=== PATIENT | female | born 1965 | race Two or more races ===

== ENCOUNTER 2016-10-29 13:03 | Observation (INO) | payer OTHER ==
--- NOTE | 2016-10-29 14:27 | PDOC ---
History of Present Illness - General History Source: Patient Exam Limitations: No Limitations - History of Present Illness Initial Comments: 10/29/16 15:39 The patient is a 51 year old female with significant past medical history of hypercholesterolemia who presents to the emergency department with chest pain since this afternoon. The patient states she was at work at the [employer] when she had a sudden onset of chest pain, weakness, and shortness of breath. Her chest pain is localized to the center of her chest and does not radiate. She also reports some numbness/tingling in her hands bilaterally. She also reports associated nausea but denies any vomiting. She denies any associated diaphoresis. The patient has never had pain like this before. She has never had a stress test. She denies any recent illness, fevers, or chills. <Seema Menchaca - Last Filed: 10/29/16 16:54> <Teresa Lentz - Last Filed: 10/31/16 07:48> - General Chief Complaint: Chest Pain Stated Complaint: NUMBNESS IN ARMS Time Seen by Provider: 10/29/16 14:18 Past History <Seema Menchaca - Last Filed: 10/29/16 16:54> - Past Medical History Diabetes: Yes (PREDIABETIC) Hypercholesterolemia: Yes Thyroid Disease: Yes - Surgical History Abdominal Surgery: Yes (ECTOPIC ) Cholecystectomy: Yes - Psycho/Social/Smoking Cessation Hx Suicidal Ideation: No Smoking History: Never smoked Hx Alcohol Use: No Drug/Substance Use Hx: No <Teresa Lentz - Last Filed: 10/31/16 07:48> - Past Medical History Allergies/Adverse Reactions: Allergies Allergy/AdvReac Type Severity Reaction Status Date / Time Penicillins Allergy Verified 10/29/16 13:17 Sulfa (Sulfonamide Allergy Verified 10/29/16 13:17 Antibiotics) Home Medications: Ambulatory Orders Levothyroxine [Synthroid -] 25 mcg PO DAILY 10/29/16 Simvastatin 20 mg PO HS 10/29/16 Review of Systems - Review of Systems Able to Perform ROS?: Yes Comments:: 10/29/16 15:39 GENERAL/CONSTITUTIONAL: +Weakness. No fever or chills. HEAD, EYES, EARS, NOSE AND THROAT: No change in vision. No ear pain or discharge. No sore throat. CARDIOVASCULAR: +Chest pain, +SOB. RESPIRATORY: No cough, wheezing, or hemoptysis. GASTROINTESTINAL: No nausea, vomiting, diarrhea or constipation. GENITOURINARY: No dysuria, frequency, or change in urination. MUSCULOSKELETAL: No joint or muscle swelling or pain. No neck or back pain. SKIN: No rash NEUROLOGIC: No headache, vertigo, loss of consciousness, or change in strength/ sensation. ENDOCRINE: No increased thirst. No abnormal weight change. HEMATOLOGIC/LYMPHATIC: No anemia, easy bleeding, or history of blood clots. ALLERGIC/IMMUNOLOGIC: No hives or skin allergy. <Seema Menchaca - Last Filed: 10/29/16 16:54> *Physical Exam - Vital Signs Last Vital Signs Temp Pulse Resp BP Pulse Ox 97.6 F 70 16 138/86 100 10/29/16 13:13 10/29/16 13:13 10/29/16 13:13 10/29/16 13:13 10/29/16 13:13 - Physical Exam Comments: 10/29/16 15:39 GENERAL: Awake, alert, and fully oriented, in no acute distress HEAD: No signs of trauma EYES: PERRLA, EOMI, sclera anicteric, conjunctiva clear ENT: Auricles normal inspection, hearing grossly normal, nares patent, oropharynx clear without exudates. Moist mucosa NECK: Normal ROM, supple, no lymphadenopathy, JVD, or masses LUNGS: Breath sounds equal, clear to auscultation bilaterally. No wheezes, and no crackles HEART: Regular rate and rhythm, normal S1 and S2, no murmurs, rubs or gallops ABDOMEN: Soft, nontender, normoactive bowel sounds. No guarding, no rebound. No masses EXTREMITIES: Normal range of motion, no edema. No clubbing or cyanosis. No cords, erythema, or tenderness NEUROLOGICAL: Cranial nerves II through XII grossly intact. Normal speech, normal gait SKIN: Warm, Dry, normal turgor, no rashes or lesions noted. <Seema Menchaca - Last Filed: 10/29/16 16:54> - Vital Signs Last Vital Signs Temp Pulse Resp BP Pulse Ox 97.6 F 70 16 138/86 100 10/29/16 13:13 10/29/16 13:13 10/29/16 13:13 10/29/16 13:13 10/29/16 13:13 <Teresa Lentz - Last Filed: 10/31/16 07:48> Heart Score/ECG Review - History History: Moderately suspicious - Electrocardiogram EKG: Normal - Age Age: 45-65 - Risk Factors Risk Factors Heart Score: Yes Hx Hypercholesterolemia Based on the list above the patient has:: 1-2 risk factors - Troponin Troponin: </= normal limit - Score Heart Score - Total: 3 - ECG Impressions Comment:: EKG read 13:36- NSR 68 bpm, marked sinus arrhythmia. No ST/T changes. <Teresa Lentz - Last Filed: 10/31/16 07:48> ED Treatment Course - LABORATORY CBC & Chemistry Diagram: 10/29/16 14:29 10/29/16 14:29 - ADDITIONAL ORDERS Additional order review: Laboratory Results 10/29/16 14:31 Urine HCG, Qual Negative 10/29/16 14:29 RBC 4.45 MCV 84.2 MCHC 32.8 RDW 14.0 MPV 7.6 Neutrophils % 71.8 Lymphocytes % 20.9 Monocytes % 5.5 Eosinophils % 1.6 Basophils % 0.2 <Seema Menchaca - Last Filed: 10/29/16 16:54> - LABORATORY CBC & Chemistry Diagram: 10/29/16 14:29 10/29/16 14:29 <Teresa Lentz - Last Filed: 10/31/16 07:48> Medical Decision Making - Medical Decision Making 10/29/16 15:44 D/w Dr. Chou- will admit for chest pain. <Teresa Lentz - Last Filed: 10/31/16 07:48> *DC/Admit/Observation/Transfer - Attestations Scribe Attestion: 10/29/16 14:59 Documentation prepared by Seema Menchaca, acting as medical accounts receivable specialist for Teresa Lentz MD. <Seema Menchaca - Last Filed: 10/29/16 16:54> - Discharge Dispostion Admit: Yes <Teresa Lentz - Last Filed: 10/31/16 07:48> Diagnosis at time of Disposition: Chest pain Qualifiers: Chest pain type: precordial pain Qualified Code(s): R07.2 - Precordial pain - Discharge Dispostion Disposition: HOME Condition at time of disposition: Stable - Referrals
[2016-10-29 14:42] LABS: BASOPHIL 0.2 % (0-2.0); EOSINOPHIL 1.6 % (0-4.5); MCH 27.6 pg (25.7-33.7); MCHC 32.8 g/dl (32.0-36.0); MEAN CELL VOLUME 84.2 fl (80-96); MEAN PLT VOLUME 7.6 fl (7.5-11.1); NEUTROPHILS 71.8 % (42.8-82.8); PLATELET COUNT 294 K/MM3 (134-434); WHITE BLOOD COUNT 9.8 K/mm3 (4.0-10.0)
[2016-10-29 14:59] LABS: ALBUMIN 3.6 g/dl (3.4-5.0); ANION GAP 5 (8-16); BILIRUBIN,TOTAL 0.3 mg/dL (0.2-1.0); CALCIUM 8.6 mg/dL (8.5-10.1); CO2 31 mmol/L (21-32); CREATININE 0.7 mg/dL (0.55-1.02); GLUCOSE,RANDOM 101 mg/dL (74-106); SGOT/AST 17 U/L (15-37); SGPT/ALT 27 U/L (12-78); TOT PROT 7.2 g/dl (6.4-8.2)
[2016-10-29 15:01] LABS: ALK PHOS 62 U/L (45-117); TROPONIN I < 0.02 ng/ml (0.00-0.05)
--- NOTE | 2016-10-29 16:39 | CON.CARD ---
Consult Consult Specialty:: Cardiology Referred by:: Hair Chou Reason for Consultation:: Chest pain - History of Present Illness Chief Complaint: Chest pain History of Present Illness: The patient is a 51 year old [place] female with significant past medical history of hypercholesterolemia who presented to the emergency department with non-radiating retrosternal, chest tightness associated with shortness of breath after running to catch a bus since resolved. She also reports some numbness/ tingling in her hands bilaterally. She denies near or true syncope, palpitations , orthopnea, PND or LE edema, denies exertional sxs usually. - History Source History Provided By: Patient, Transfer Record - Past Medical History Cardio/Vascular: Yes: Hyperlipdemia - Alcohol/Substance Use Hx Alcohol Use: No - Smoking History Smoking history: Never smoked Home Medications - Allergies Allergies/Adverse Reactions: Allergies Allergy/AdvReac Type Severity Reaction Status Date / Time Penicillins Allergy Verified 10/29/16 13:17 Sulfa (Sulfonamide Allergy Verified 10/29/16 13:17 Antibiotics) - Home Medications Home Medications: Ambulatory Orders Levothyroxine [Synthroid -] 25 mcg PO DAILY 10/29/16 Simvastatin 20 mg PO HS 10/29/16 Review of Systems - Review of Systems Cardiovascular: reports: Chest Pain, Shortness of Breath - Risk Factors Known Risk Factors: Yes: Hypercholesterolemia, Race Vital Signs: Vital Signs Temperature 97.6 F 10/29/16 13:13 Pulse Rate 70 10/29/16 13:13 Respiratory Rate 16 10/29/16 13:13 Blood Pressure 138/86 10/29/16 13:13 O2 Sat by Pulse Oximetry (%) 100 10/29/16 13:13 Constitutional: Yes: No Distress, Calm Neck: Yes: Supple Respiratory: Yes: Regular, CTA Bilaterally Gastrointestinal: Yes: Normal Bowel Sounds, Soft Cardiovascular: Yes: Regular Rate and Rhythm JVD: No Carotid Bruit: No Heart Sounds: Yes: S1, S2 Edema: No - Other Data NSR @ 68 Imaging - Results Chest X-ray: Report Reviewed (NAD) Problem List - Problems (1) Chest pain Code(s): R07.9 - CHEST PAIN, UNSPECIFIED Qualifiers: Chest pain type: precordial pain Qualified Code(s): R07.2 - Precordial pain (2) Hyperlipidemia Code(s): E78.5 - HYPERLIPIDEMIA, UNSPECIFIED Qualifiers: Hyperlipidemia type: pure hypercholesterolemia Qualified Code(s): E78.00 - Pure hypercholesterolemia, unspecified; E78.0 - Pure hypercholesterolemia Assessment/Plan 1. Chest pain syndrome r/o ischemia 2. Hyperlipidemia P:1. Ruling out for MS, check TSH, lipid panel 2. Exercise stress test r/o ischemia 3. Echo to assess LV and valve fxn 4. Thank you for consultative opportunity
[2016-10-29] MEDS ORDERED: ATORVASTATIN CA 10 MG TABLET (FP) PO SCH (22:00)
[2016-10-30] MEDS ORDERED: LEVOTHYROXINE NA 25 MCG TABLET (FP) PO SCH (07:00)
[2016-10-30 08:47] LABS: CHOLESTEROL 179 mg/dL (50-200); LDL CHOLESTEROL (ONLY SJRH) 119 mg/dL (5-100); THYROID STIMULATING HORMONE 4.03 uIU/ml (0.358-3.74); TROPONIN I < 0.02 ng/ml (0.00-0.05)
--- NOTE | 2016-10-30 09:29 | PN ---
Progress Note, Physician Chief Complaint: Pt sitting in bed No complaints,no chest pain,no sob Pt is NPO for stress test Cardiac enzyme nega - Current Medication List Current Medications: Active Medications Atorvastatin Calcium (Lipitor -) 10 mg PO HS [facility] Last Admin: 10/29/16 22:13 Dose: 10 mg Levothyroxine Sodium (Synthroid -) 25 mcg PO DAILY@0700 [facility] Last Admin: 10/30/16 06:25 Dose: 25 mcg - Objective Vital Signs: Vital Signs Temperature 97.6 F 10/30/16 06:00 Pulse Rate 63 10/30/16 06:00 Respiratory Rate 20 10/30/16 06:00 Blood Pressure 128/70 10/30/16 06:00 O2 Sat by Pulse Oximetry (%) 96 10/29/16 21:00 Constitutional: Yes: No Distress Eyes: Yes: Conjunctiva Clear HENT: Yes: Atraumatic Neck: Yes: Supple, Trachea Midline Cardiovascular: Yes: Regular Rate and Rhythm Respiratory: Yes: Regular, CTA Bilaterally Gastrointestinal: Yes: Normal Bowel Sounds, Soft Musculoskeletal: Yes: WNL Extremities: Yes: WNL Edema: No Peripheral Pulses WNL: Yes Neurological: Yes: WNL, Alert, Oriented ...Motor Strength: WNL Psychiatric: Yes: WNL, Alert, Oriented Labs: Laboratory Results - last 24 hr 10/29/16 10/29/16 10/29/16 14:29 14:29 14:31 WBC 9.8 RBC 4.45 Hgb 12.3 Hct 37.5 MCV 84.2 MCHC 32.8 RDW 14.0 Plt Count 294 MPV 7.6 Neutrophils % 71.8 Lymphocytes % 20.9 Monocytes % 5.5 Eosinophils % 1.6 Basophils % 0.2 Sodium 139 Potassium 4.3 Chloride 103 Carbon Dioxide 31 Anion Gap 5 L BUN 12 Creatinine 0.7 Creat Clearance w eGFR > 60 Random Glucose 101 Calcium 8.6 Total Bilirubin 0.3 AST 17 ALT 27 Alkaline Phosphatase 62 Creatine Kinase 139 Troponin I < 0.02 Total Protein 7.2 Albumin 3.6 Triglycerides Cholesterol Total LDL Cholesterol HDL Cholesterol TSH Urine HCG, Qual Negative 10/30/16 05:35 WBC RBC Hgb Hct MCV MCHC RDW Plt Count MPV Neutrophils % Lymphocytes % Monocytes % Eosinophils % Basophils % Sodium Potassium Chloride Carbon Dioxide Anion Gap BUN Creatinine Creat Clearance w eGFR Random Glucose Calcium Total Bilirubin AST ALT Alkaline Phosphatase Creatine Kinase 116 Troponin I < 0.02 Total Protein Albumin Triglycerides 144 Cholesterol 179 Total LDL Cholesterol 119 H HDL Cholesterol 44 TSH 4.03 H Urine HCG, Qual - ....Imaging Chest X-ray: Report Reviewed EKG: Report Reviewed Assessment/Plan Chest pain hypercholestrolemia PLAN Continue MEDS For stress test today
--- NOTE | 2016-10-30 10:05 | PN ---
Progress Note, Physician History of Present Illness: No further chest tightness or dyspnea. Ruled out for GA. - Current Medication List Current Medications: Active Medications Atorvastatin Calcium (Lipitor -) 10 mg PO HS [facility] Last Admin: 10/29/16 22:13 Dose: 10 mg Levothyroxine Sodium (Synthroid -) 25 mcg PO DAILY@0700 [facility] Last Admin: 10/30/16 06:25 Dose: 25 mcg - Objective Vital Signs: Vital Signs Temperature 97.6 F 10/30/16 06:00 Pulse Rate 63 10/30/16 06:00 Respiratory Rate 20 10/30/16 06:00 Blood Pressure 128/70 10/30/16 06:00 O2 Sat by Pulse Oximetry (%) 96 10/29/16 21:00 Constitutional: Yes: No Distress, Calm Neck: Yes: Supple Cardiovascular: Yes: Regular Rate and Rhythm Respiratory: Yes: Regular, CTA Bilaterally Gastrointestinal: Yes: Normal Bowel Sounds, Soft Edema: No - ....Imaging EKG: Report Reviewed (Tele: SR) Problem List - Problems (1) Chest pain Code(s): R07.9 - CHEST PAIN, UNSPECIFIED Qualifiers: Chest pain type: precordial pain Qualified Code(s): R07.2 - Precordial pain (2) Hyperlipidemia Code(s): E78.5 - HYPERLIPIDEMIA, UNSPECIFIED Qualifiers: Hyperlipidemia type: pure hypercholesterolemia Qualified Code(s): E78.00 - Pure hypercholesterolemia, unspecified; E78.0 - Pure hypercholesterolemia Assessment/Plan 1. Chest pain syndrome r/o ischemia 2. Hyperlipidemia P:1. Ruled out for GA 2. Exercise stress test r/o ischemia 3. Echo to assess LV and valve fxn 4. Further recommendations pending above study results
--- NOTE | 2016-10-30 10:22 | HP ---
DATE OF ADMISSION: DATE OF DICTATION: 10/30/2016 HISTORY OF PRESENT ILLNESS: The patient is a 51-year-old female with past medical history of hyperlipidemia, hypothyroidism, diabetes, who presented to the emergency department with complaints of non-radiating retrosternal chest tightness associated with shortness of breath after running to catch a bus, and it has resolved spontaneously. She also reports some tingling and numbness in her hands bilaterally. She denies any pain, palpitations. orthopnea, or lower extremity edema. She denies any other exertional dyspnea on a regular basis. PAST MEDICAL HISTORY: History of hyperlipidemia and hypothyroidism, prediabetic. SURGICAL HISTORY: Nothing significant. PERSONAL HISTORY: No history of alcohol, drug, or smoking. ALLERGIES: To PENICILLIN and SULFA. HOME MEDICATIONS: Levothyroxine 25 mcg p.o. daily, simvastatin 20 mg p.o. daily. REVIEW OF SYSTEMS: General: No apparent distress. Cardiovascular: History of hypocholesterolemia. Respiratory: Tightness in the chest. Gastrointestinal: Nothing significant. Neurological: Tingling sensation both hands. Musculoskeletal: Nothing significant. PHYSICAL EXAMINATION: Vital signs: On examination in the emergency room, temperature was 97.6, pulse rate 70, respirations 16, blood pressure 136/86, and saturation 100%. Constitution: In no apparent distress. Patient is calm. Head and neck: Normal. Neck supple. Respiratory: Regular. Clear to auscultation bilaterally. No carotid bruit. Cardiovascular: The 1st and 2nd sound normal. Abdomen: Soft, no tenderness, no distension. Bowel sounds present. Extremities: No edema. Central nervous system: Alert and oriented x3. No apparent motor or sensory deficit. Reflex normal. DIAGNOSTIC DATA: EKG shows sinus rhythm with sinus arrhythmia, nonspecific ST abnormality. Chest x-ray shows nothing significant. LABORATORIES: CBC normal. CMP normal. Cardiac enzymes x1 negative. Urine test negative. AST, ALT normal. CK 139. IMPRESSION: Patient admitted to telemetry with admitting diagnosis of chest pain, unspecified, and hyperlipidemia. PLAN: Continue the medication. Rule out SC. Check thyroid and lipid panel. Cardiology consult noted. Recommend exercise stress test and echocardiogram. Patient stable on the floor. KVNG ESPOSITO M.D. [id number]
--- NOTE | 2016-10-30 13:47 | TRE ---
Protocol Name : CLEO Max Work Load (METS*10) : 80 Time In Exercise Phase : 00:06:39 Max. Systolic BP : 108 mmHg Max Diastolic BP : 74 mmHg Max Heart Rate : 144 BPM Max Predicted Heart Rate : 167 BPM Attending Physician : Reason For Termination : Target Heart Rate Achieved Reason for Test : CHEST PAIN Stress Protocol : CLEO Rest HR : 68 BPM PeakEx METs : 8.0 METS Recovery ECG Response (OLD) : Diagnosis : Baseline ecg shows sr. Patient exercised for 6:39 minutes achieving 86% mphr. Normal BP and HR response to exercise. No chest pain or anginal symptoms. No arrhythmias. ST depressions present in AVF and V6 but do not meet criteria for ischemia. Normal exercise stress ecg. Confirmed by KEYANA MONTAGUE MD ([id number]) on 10/30/2016 1:47:34 PM
--- NOTE | 2016-10-30 13:52 | EKG ---
Test Reason : Blood Pressure : / mmHG Vent. Rate : 068 BPM Atrial Rate : 068 BPM P-R Int : 146 ms QRS Dur : 082 ms QT Int : 384 ms P-R-T Axes : 058 014 062 degrees QTc Int : 408 ms SINUS RHYTHM WITH MARKED SINUS ARRHYTHMIA NONSPECIFIC ST ABNORMALITY ABNORMAL ECG NO PREVIOUS ECGS AVAILABLE Confirmed by KEYANA MONTAGUE MD ([id number]) on 10/30/2016 1:52:44 PM Referred By: Confirmed By:KEYANA MONTAGUE MD
[2016-10-30 14:52] VITALS: BP 110/68; PULSE 77; TEMP 98.4
== END 2016-10-30 18:12 | disposition home or self-care (01) ==
LOC: JER 13:03 → JERBED 15:45 → J4W 17:30
PROVIDERS: ADMIT Family Medicine; ATTEND Family Medicine
DX: R07.89 Other chest pain (principal); E78.00 Pure hypercholesterolemia, unspecified; R73.03 Prediabetes
CPT/HCPCS: 36415; 71010-TC; 80053; 80061; 82550; 83721; 84443; 84484; 84703; 85025; 93005; 93010; 93017; 93018; 93306-TC; 99285-25; G0378

== ENCOUNTER 2017-02-23 18:54 | Emergency (ER) | payer OTHER ==
[2017-02-23] MEDS ORDERED: SODIUM CHLORIDE 0.9% 1000 ML INFUS.BAG IV PRN (19:26)
[2017-02-23 20:07] VITALS: BP 127/72; PULSE 78; TEMP 99.1; BMI 53.0
[2017-02-23 20:13] LABS: BASOPHIL 0.2 % (0-2.0); EOSINOPHIL 2.8 % (0-4.5); MCH 26.8 pg (25.7-33.7); MCHC 32.2 g/dl (32.0-36.0); MEAN CELL VOLUME 83.4 fl (80-96); MEAN PLT VOLUME 7.9 fl (7.5-11.1); NEUTROPHILS 82.4 % (42.8-82.8); PLATELET COUNT 259 K/MM3 (134-434); RDW 13.1 % (11.6-15.6)
--- NOTE | 2017-02-23 20:18 | PDOC ---
History of Present Illness - General Chief Complaint: SIRS, Suspected/Possible Stated Complaint: nausea/fever/ Time Seen by Provider: 02/23/17 19:21 - History of Present Illness Initial Comments: 02/23/17 20:16 CHIEF COMPLAINT: cough, fever, "feeling sick" HISTORY OF PRESENT ILLNESS: 51 yo F with hx of hypothyroidism, prediabetes, and HLD presents to ED with c/o of "feeling sick since last night." Patient reports that she felt like she had a fever last night, and this morning she left work early because she was feeling "too bad." She reports body aches, 2 episodes of vomiting today, "too much" coughing, and urinary frequency. She denies any dysuria or hematuria. No recent travel or sick contacts. PAST MEDICAL HISTORY: Denies past medical history FAMILY HISTORY: Denies SOCIAL HISTORY: Denies tobacco, alcohol, illicit drug use. SURGICAL HISTORY: Denies ALLERGIES: PCN, sulfa REVIEW OF SYSTEMS General/Constitutional: Subjective fever, chills. Denies weakness, weight change. HEENT: Denies change in vision. Denies ear pain or discharge. Denies sore throat. Cardiovascular: Denies chest pain or shortness of breath. Respiratory: Cough. Denies wheezing, or hemoptysis. Gastrointestinal: 2 episodes of vomiting today. Denies diarrhea or constipation. Denies rectal bleeding. Genitourinary: Urinary frequency. Denies dysuria, hematuria. Musculoskeletal: Body aches. Denies joint or muscle swelling or pain. Skin: Denies rash or easy bruising. Neurologic: Denies headache, vertigo, loss of consciousness, or loss of sensation. PHYSICAL EXAM General Appearance: Well-appearing, appropriately dressed. No apparent distress , no intoxication. HEENT: EOMI, PERRLA, normal ENT inspection, normal voice, TMs normal, pharynx normal. No conjunctival pallor. No photophobia, scleral icterus. Neck: Supple. Trachea midline. No tenderness, rigidity, carotid bruit, stridor , lymphadenopathy, or thyromegaly. Respiratory/Chest: Lungs CTAB. No shortness of breath, chest tenderness, respiratory distress, accessory muscle use. No crackles, rales, rhonchi, stridor , wheezing, dullness Cardiovascular: RRR. S1, S2. No JVD, murmur, bradycardia, tachycardia. Vascular Pulses: Dorsalis-Pedis (R): 2+, Dorsalis-Pedis (L): 2+ Gastrointestinal/Abdominal: Normal bowel sounds. Abdomen soft, non-distended. No tenderness or rebound tenderness. No organomegaly, pulsatile mass, guarding , hernia, hepatomegaly, splenomegaly. Lymphatic: No adenopathy, tenderness. Musculoskeletal/Extremities: Normal inspection. FROM of all extremities, normal capillary refill. Pelvis Stable. No CVA tenderness. No tenderness to extremities, pedal edema, swelling, erythema or deformity. Integumentary: Appropriate color, dry, warm. No cyanosis, erythema, jaundice or rash Neurologic: elderly caregiver II-XII intact. Fully oriented, alert. Appropriate mood/affect. Motor strength 5/5. No appreciable EOM palsy, facial droop or sensory deficit. Past History - Past Medical History Allergies/Adverse Reactions: Allergies Allergy/AdvReac Type Severity Reaction Status Date / Time Penicillins Allergy Verified 10/29/16 13:17 Sulfa (Sulfonamide Allergy Verified 10/29/16 13:17 Antibiotics) Home Medications: Ambulatory Orders Levothyroxine [Synthroid -] 25 mcg PO DAILY 10/29/16 Simvastatin 20 mg PO HS 10/29/16 Dextromethorphan HBr [Robitussin] 15 mg PO Q6H PRN #28 capsule 02/23/17 Guaifenesin/Codeine Phosphate [Cheratussin AC Syrup] 15 ml PO HS PRN #118 ml MDD 30 02/23/17 Ibuprofen 600 mg PO TID #21 tablet 02/23/17 Diabetes: Yes (PREDIABETIC) Hypercholesterolemia: Yes Thyroid Disease: Yes - Surgical History Abdominal Surgery: Yes (ECTOPIC ) Cholecystectomy: Yes - Psycho/Social/Smoking Cessation Hx Suicidal Ideation: No Smoking History: Never smoked Have you smoked in the past 12 months: No Hx Alcohol Use: No Drug/Substance Use Hx: No Substance Use Type: None Hx Substance Use Treatment: No *Physical Exam - Vital Signs Last Vital Signs Temp Pulse Resp BP Pulse Ox 99.1 F 78 17 127/72 97 02/23/17 20:04 02/23/17 20:04 02/23/17 20:04 02/23/17 20:04 02/23/17 20:04 ED Treatment Course - LABORATORY CBC & Chemistry Diagram: 02/23/17 19:40 02/23/17 19:40 - ADDITIONAL ORDERS Additional order review: 02/23/17 19:40 RBC 4.50 MCV 83.4 MCHC 32.2 RDW 13.1 MPV 7.9 Neutrophils % 82.4 Lymphocytes % 10.3 D Monocytes % 4.3 Eosinophils % 2.8 Basophils % 0.2 - RADIOLOGY Radiology Studies Ordered: Category Date Time Status CHEST X-RAY PORTABLE* [RAD] Stat Radiology 02/23/17 19:26 Taken Medical Decision Making - Medical Decision Making 02/23/17 20:27 51 yo F with hx of hypothyroidism, prediabetes, and HLD presents to ED with c/ o of "feeling sick since last night." -CBC, CMP, lactic acid, PT/INR, blood cultures -UA, UCx -EKG, CXR 02/23/17 22:10 LAbs unremarkable. CXR clear Clinical presentation consistent with viral bronchitis. Will discharge to home with symptomatic meds. Advised patient to take medication as prescribed and follow up with PCP within one week. Advised patient of signs and symptoms for return to ED. Patient verbalized understanding and agrees to plan. *DC/Admit/Observation/Transfer Diagnosis at time of Disposition: Acute bronchitis Qualifiers: Bronchitis organism: unspecified organism Qualified Code(s): J20.9 - Acute bronchitis, unspecified - Discharge Dispostion Disposition: HOME Condition at time of disposition: Stable - Prescriptions Prescriptions: Guaifenesin/Codeine Phosphate [Cheratussin AC Syrup] 15 ml PO HS PRN #118 ml MDD 30 PRN Reason: Cough Ibuprofen 600 mg PO TID #21 tablet Dextromethorphan HBr [Robitussin] 15 mg PO Q6H PRN #28 capsule PRN Reason: Cough - Referrals Referrals: Hair Chou MD [Primary Care Provider] - - Patient Instructions Printed Discharge Instructions: DI for Acute Bronchitis Additional Instructions: Please take medications as prescribed. Do not drive or operate machinery while taking Cheratussin AC. Drinks plenty of fluids (non-sugary) and stay home and rest for the next 2-3 days. Please follow up with your primary care doctor within the next week for continued monitoring. If you experience any shortness of breath, chest pain, high fever unrelieved by Motrin or Tylenol, persistent vomiting, or any new or worsening symptoms, please return to the ER. - Post Discharge Activity Work/School Note: Back to Work
[2017-02-23 20:26] LABS: INR 1.12 (0.82-1.09); PROTHROMBIN TIME (PATIENT) 12.4 SEC (9.98-11.88)
[2017-02-23 20:28] LABS: ACTIVATED PTT 34.7 SECONDS (26.9-34.4)
[2017-02-23 20:35] LABS: ALBUMIN 3.9 g/dl (3.4-5.0); ANION GAP 6 (8-16); BILIRUBIN,TOTAL 0.5 mg/dL (0.2-1.0); CALCIUM 8.9 mg/dL (8.5-10.1); CO2 29 mmol/L (21-32); CREATININE 0.7 mg/dL (0.55-1.02); GLUCOSE,RANDOM 128 mg/dL (74-106); SGOT/AST 21 U/L (15-37); SGPT/ALT 36 U/L (12-78); TOT PROT 7.7 g/dl (6.4-8.2)
[2017-02-23 20:38] LABS: ALK PHOS 70 U/L (45-117); TROPONIN I < 0.02 ng/ml (0.00-0.05)
[2017-02-23 20:51] LABS: VENOUS PH 7.43 (7.32-7.42)
[2017-02-23 20:52] LABS: VENOUS BLOOD GAS HCO3 26.1 meq/L (19-25)
[2017-02-23 22:00] LABS: URINE APPEARANCE CLEAR; URINE BILIRUBIN NEGATIVE (NEGATIVE); URINE BLOOD NEGATIVE (NEGATIVE); URINE COLOR STRAW; URINE GLUCOSE (UA) NEGATIVE (NEGATIVE); URINE KETONE NEGATIVE (NEGATIVE); URINE LEUK ESTERASE NEGATIVE (NEGATIVE); URINE NITRITE NEGATIVE (NEGATIVE); URINE PROTEIN NEGATIVE (NEGATIVE); URINE UROBILINOGEN NEGATIVE E.U./dl (0.2-1.0)
--- NOTE | 2017-02-25 10:42 | EKG ---
Test Reason : Blood Pressure : / mmHG Vent. Rate : 077 BPM Atrial Rate : 077 BPM P-R Int : 148 ms QRS Dur : 086 ms QT Int : 398 ms P-R-T Axes : 068 038 080 degrees QTc Int : 450 ms NORMAL SINUS RHYTHM NONSPECIFIC T WAVE ABNORMALITY ABNORMAL ECG WHEN COMPARED WITH ECG OF 29-OCT-2016 12:26, NONSPECIFIC T WAVE ABNORMALITY NOW EVIDENT IN LATERAL LEADS Confirmed by KARI MALDONADO, MIRA ([id number]) on 02/25/2017 10:41:47 AM Referred By: Confirmed By:MIRA PIERCE MD
== END 2017-02-23 22:30 | disposition home or self-care (01) ==
LOC: JER 18:54
DX: J20.9 Acute bronchitis, unspecified (principal); R73.03 Prediabetes; E03.9 Hypothyroidism, unspecified; E78.00 Pure hypercholesterolemia, unspecified
CPT/HCPCS: 36415; 71010-TC; 80053; 81003; 82550; 82803; 83605; 84484; 85025; 85610; 85730; 86850; 86900; 86901; 87040; 87086; 93005; 93010; 99283-25